=== PATIENT | female | born 1995 | race Two or more races ===

== ENCOUNTER 2017-08-04 18:08 | Emergency (ER) | payer OTHER ==
[~2017-08-04] VITALS: Ht 162.6 cm; Wt 72.6 kg
--- NOTE | 2017-08-04 20:08 | NUR ---
Dr. Choi at bedside for MSE.
[2017-08-04 20:27] LABS: *URINE HCG, QUAL NEGATIVE (NEGATIVE)
--- NOTE | 2017-08-04 21:21 | NUR ---
Pt to and from CT. Pt conts to c/o headache. Sts its a 6/ but sts it is tolerable and declines need for medication. Pt resting in position of comfort for self.
--- NOTE | 2017-08-04 22:30 | NUR ---
Pt stable for discharge per MD. Pt given ACI. Pt verbalized understanding of dc instructions. Pt ambulated out of ER with steady gait.
[2017-08-04 23:51] VITALS: BP 121/64
== END 2017-08-04 22:30 | disposition home or self-care (01) ==
LOC: ER 18:08
DX: S09.90XA Unspecified injury of head, initial encounter (principal); R42 Dizziness and giddiness; J45.909 Unspecified asthma, uncomplicated; W18.30XA Fall on same level, unspecified, initial encounter; Y93.89 Activity, other specified; Y92.89 Other specified places as the place of occurrence of the external cause; Y99.8 Other external cause status
CPT/HCPCS: 70450; 84703; 99285; A4663